=== PATIENT | female | born 1985 ===

== ENCOUNTER 2024-03-15 07:22 | Outpatient (AMB) | payer OTHER, SELFPAY ==
--- NOTE | 2024-03-15 07:36 | MHC.PC.OV ---
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 Accompanied by: Self / Same As Patient Allergies azithromycin [From Zithromax] Allergy (Severe, Verified 03/15/24 07:53) Anaphylaxis Cephalosporins Allergy (Severe, Verified 03/15/24 07:53) Anaphylaxis Penicillins Allergy (Severe, Verified 03/15/24 07:53) Anaphylaxis Medication List - Last Reconciled 03/15/24 by Lou Gonzalez MD albuterol sulfate 90 mcg/actuation 2 puffs inhalation Q6H PRN dextroamphetamine-amphetamine 30 mg ER (Adderall XR) 60 mg PO DAILY duloxetine 60 mg PO DAILY lorazepam 2 mg PO DAILY PRN Ventolin HFA 90 mcg/actuation (albuterol sulfate) 2 puffs inhalation Q6H PRN 30 days NS Tobacco use date assessed: 03/15/24 Dental Screening Dental Screen Date: 03/15/24 Did you have a dental visit in the last 12 months?: No Did you have a dental problem in the last 6 months where you did not have access to dental care?: No Was dental information given to patient?: Patient has dentist HPI HPI Comments History of Present Illness Details This is a 38-year-old female with mild major depression that comes for her physical exam as a new patient. Depression has been well controlled with duloxetine and this is follow by Psychiatry as well as ADHD and anxiety. Last Pap smear was a month ago and he was normal as per patient. No family history of breast or colon cancer. She is obese with a BMI of 37.9 and was advised to do diet and exercise. She also said that she has lost 110 lb in a year unintentional. No chest pain or shortness of breath. No change in bowel or bladder habits. No fever or cough. Had elevated blood pressure today and is aware that Adderall can cause high blood pressure. Blood pressure will be recheck in 3 weeks by nurse navigator. [facility] Surgical History History of surgery Family History Mother Asthma Fibromyalgia Substance use disorder Mental health disorder Father Hypertension Hypercholesteremia Prediabetes Substance use disorder Family/Other Mental health disorder Social History Housing: House Alcohol intake: current Alcohol intake frequency: holidays/special occasions only Alcohol type: beer Patient Tobacco Use Status: Former Tobacco user Tobacco use type: Cigarette e-Cigarette/Vaping Use: Currently Using Second Hand Smoke Exposure: No service: No Current occupational status: employed Current occupational exposures/hazards: No Cognitive needs: No Hearing needs: No Vision needs: Yes Questionnaire PHQ-9 Over the last 2 weeks, how often have you been bothered by any of the following problems? 1. Little interest or pleasure in doing things: not at all 2. Feeling down, depressed, or hopeless: not at all 3. Trouble falling or staying asleep, or sleeping too much: not at all 4. Feeling tired or having little energy: not at all 5. Poor appetite or overeating: not at all 6. Feeling bad about yourself - or that you are a failure or have let yourself or your family down: not at all 7. Trouble concentrating on things, such as reading the newspaper or watching television: not at all 8. Moving or speaking so slowly that other people could have noticed. Or the opposite - being so fidgety or restless that you have been moving around a lot more than usual: not at all 9. Thoughts that you would be better off or of hurting yourself in some way: not at all Total score: 0 Depression Screening Interpretation: Negative Depression Screening Done: Yes 14405 - PHQ-9 Billing: Yes Source: Developed by Drs. Eric Cardozo, Allison Snow, Eren Hatfield and colleagues, with an educational talisha from [employer] Thrive Questionnaire Date Thrive assessed: 03/15/24 I am a: Patient What is your living situation today?: I have a steady place to live Within the past 12 months, did the food you bought not last and you didn't have the money to get more?: Never true Within the past 12 months, did you worry whether your food would run out before you got money to buy more?: Never true Do you have trouble paying for medicines?: No Do you have trouble getting transportation to medical appointments?: No Do you have trouble paying your heating and electricity bill?: No Do you have trouble taking care of your child, family member or friend?: No Do you have trouble with day-to-day activities such as bathing, preparing meals, shopping, managing finances, etc.?: No Are you currently unemployed and looking for a job?: No Are you interested in more education?: No Please select the resources that you would like help with: None Currently or been in a relationship where the following occur: no concerns reported THRIVE Score: 0 AUDIT C Alcohol Use Questionnaire (AUDIT-C) 1. How often do you have a drink containing alcohol?: Monthly or less 2. How many drinks containing alcohol do you have on a typical day when you are drinking?: 1 or 2 3. How often do you have six or more drinks on one occasion?: Never Total Score: 1 Score Reviewed/Action Taken: No MARIA DOLORES-7 AMB Questionnaire MARIA DOLORES-7 Date MARIA DOLORES - 7 assessed: 03/15/24 Feeling nervous, anxious, or on edge: 2 = More than half the days Not being able to stop or control worryin = More than half the days Worrying too much about different things: 2 = More than half the days Trouble relaxin = Nearly every day Being so restless that it is hard to sit still: 3 = Nearly every day Becoming easily annoyed or irritable: 0 = Not at all Feeling afraid as if something awful might happen: 0 = Not at all Total MARIA DOLORES-7 score (0-4 normal; 5-9 mild; 10-14 moderate; 15-21 severe): 12 Source: Developed by Drs. Eric Cardozo, Allison Snow, Eren Hatfield and colleagues, with an educational talisha from [employer] MARIA DOLORES-7 Assessment Billing MARIA DOLORES-7 Assessment Tool: MARIA DOLORES-7 Assessment 00350 Review of Systems Const All systems reviewed & are unremarkable except as noted in HPI and below Eyes Reports no additional complaints, Denies change in vision and Denies other visual disturbances Card Denies chest pain at rest, Denies chest pain with activity, Denies edema, Denies irregular heart rhythm, Denies claudication, Denies dyspnea, Denies dyspnea on exertion, Denies orthopnea, Denies paroxysmal nocturnal dyspnea and Denies slow heart rate Resp Denies cough, Denies dyspnea and Denies dyspnea on exertion GI Denies abdominal pain, Denies change in bowel habits, Denies excessive flatus, Denies nausea and Denies vomiting Denies urinary incontinence, Denies urinary hesitancy and Denies urinary urgency Neuro Denies behavioral changes, Denies confusion and Denies lack of coordination Psych Denies behavioral changes and Denies confusion Physical exam (Primary Care) Vital Signs: Last Vital Signs BP 142/96 H 03/15/24 07:40 BMI result Body Mass Index 37.9 Tobacco/Smoking Status: Tobacco use Status Tobacco use date assessed 03/15/24 03/15/24 07:51 Patient Tobacco Use Status Former Tobacco user 03/15/24 07:51 Tobacco use type Cigarette 03/15/24 07:51 e-Cigarette/Vaping Use Currently Using 03/15/24 07:51 PHQ-9: PHQ-9 Score PHQ-9: Total score 0 03/15/24 07:51 Depression Screening Interpretation: Negative Thrive Assessment: Date of Thrive Assessment Date Thrive assessed 03/15/24 03/15/24 07:51 Currently or been in a relationship where the following occur: no concerns reported Const General: No confusion Orientation/consciousness: patient oriented x3 and No confusion HENMT Head: Yes normal to inspection, Yes normocephalic and Yes atraumatic Ears: external ears normal Eyes General: appearance normal, both eyes and all related structures Eyelids: Yes eyelids normal Conjunctivae: conjunctivae normal Neck Neck: Yes normal visual inspection and Yes supple Resp Effort & Inspection: normal respiratory effort Auscultation: clear to auscultation bilaterally Cardio Jugular venous distension: no JVD Rate: regular rate Rhythm: regular rhythm Heart sounds: S1 normal heart sound present and S2 normal heart sound present GI Inspection: Yes normal to inspection Palpation (GI): Soft to palpation and nontender Auscultation: normal bowel sounds Skin General skin exam: no rashes or lesions noted Neuro General: patient oriented x3, no focal motor deficits and No confusion Extrem General: Yes full ROM Psych Appearance: grossly normal Assessment and Plan Assessment & Plan (1) Physical exam: Code(s): Z00.00 - Encounter for general adult medical examination without abnormal findings Plan: Repeat in a year. (2) Mild major depression: Comment: Follow by Psychiatry Code(s): F32.0 - Major depressive disorder, single episode, mild Plan: Completely controlled with duloxetine. Orders: Orders Comprehensive [place]. Panel Fast Today Z00.00 - Encounter for general adult medical examination without abnormal findings Lipid Panel Today Z00.00 - Encounter for general adult medical examination without abnormal findings Thyroid Stimulating Hormone Today R63.4 - Abnormal weight loss Complete Blood Count Auto Diff Today R63.4 - Abnormal weight loss Medications: New Ventolin HFA 90 mcg/actuation (albuterol sulfate) 2 puffs inhalation Q6H PRN 8 grams 1RF shortness of breath or wheezing 30 days NS Coding Level of Care Code Est Pt Prev Care [id number]) Diagnoses Physical exam Z00.00 Mild major depression F32.0 Additional Codes MARIA DOLORES-7 Assessment Billing - MARIA DOLORES-7 Assessment Tool: MARIA DOLORES-7 Assessment 47140 ([id number]) Time Spent (min) 32
[2024-03-15 07:40] VITALS: BP 142/96; BMI 37.9
== END 2024-03-15 08:09 | disposition home or self-care (01) ==
PROVIDERS: PCP Internal Medicine; Visit Provider Internal Medicine
DX: Z00.00 Encounter for general adult medical examination without abnormal findings (principal); F32.0 Major depressive disorder, single episode, mild
CPT/HCPCS: 99395